=== PATIENT | female | born 1970 | race African-American/Black ===

== ENCOUNTER 2017-06-18 14:34 | Emergency (ER) | payer BC, OTHER ==
[~2017-06-18] VITALS: Ht 149.9 cm; Wt 80.0 kg
[~2017-06-18 14:34] MED LIST: AMLO10TA2 PO; MECL-62 PO; MOBI7.5T PO
[2017-06-18 14:35] VITALS: BP 216/121; PULSE 76; RESP 16; TEMP 98.6; O2SAT 98
[2017-06-18] MEDS ORDERED: KETOROLAC TROMETHAMINE 60 MG/2 ML (IM) VIAL IM ONE (17:30)
[2017-06-18] MEDS ORDERED: HYDR-3580 PO (18:24)
[2017-06-18] MEDS ORDERED: IBUP-232 PO (18:24)
--- NOTE | 2017-06-18 18:26 | PD ---
HPI Chief Complaint: Injury Time Seen by Provider: 17:01 Travel History International Travel<30 days: No Contact w/Intl Traveler<30days: No Traveled to known affect area: No History of Present Illness HPI 47 yo F complains of R shouler pain worse with elevation over 90 degrees. 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 no numbness/tingling/weakness. no similar prior episodes. duration now two days without significant reduction in pain severity. no other complaint at time of interview. PFSH Past Medical History Cardiovascular Problems: Yes (HYPERTENSION) Hypertension: Yes ?: Not Menopausal: Yes Past Surgical History Thoracic Surgery: Yes (PNEUMOTHORAX) Social History Alcohol Use: Yes (6 PACK ON WEEKEND) Tobacco Use: Yes (1-2 CIGGARETTES ON WEEKENDS) Substance Use: No Allergies-Medications (Allergen,Severity, Reaction): Coded Allergies: No Known Allergies (Verified , 07/26/16) Reported Meds & Prescriptions Reported Meds & Active Scripts Active Hydrocodone-Acetaminophen 7.5 Mg-325 Mg Tab 1 Tab PO Q6H PRN Ibuprofen 600 Mg Tab 600 Mg PO Q8H PRN Amlodipine (Amlodipine Besylate) 10 Mg Tab 10 Mg PO DAILY Mobic (Meloxicam) 7.5 Mg Tab 7.5 Mg PO DAILY Meclizine Hcl (Meclizine HCl) 25 Mg Tab 25 Mg PO TID PRN Review of Systems General / Constitutional: No: Fever Eyes: No: Visual changes HENT: No: Headaches Cardiovascular: No: Chest Pain or Discomfort Respiratory: No: Shortness of Breath Gastrointestinal: No: Abdominal Pain Physical Exam Narrative GENERAL: pleasant 47 you female in no acute distress SKIN: Warm and dry. HEAD: Atraumatic. Normocephalic. NECK: Trachea midline. No JVD. CARDIOVASCULAR: Regular rate and rhythm. RESPIRATORY: No accessory muscle use. Clear to auscultation. Breath sounds equal bilaterally. GASTROINTESTINAL: Abdomen soft, non-tender, nondistended. Hepatic and splenic margins not palpable. MUSCULOSKELETAL: Extremities without clubbing, cyanosis, or edema. No obvious deformities. TTP anterior R shoulder at the glenohumeral articulation. elevation above 90s degrees is limited 2/2 pain. 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 2+ radial artery pulses bilaterally. no pain with passive ROM at less than 90 degrees NEUROLOGICAL: Awake and alert. No obvious cranial nerve deficits. Motor grossly within normal limits. Five out of 5 muscle strength in the arms and legs. Normal speech. PSYCHIATRIC: Appropriate mood and affect; insight and judgment normal. Data Data Last Documented VS Vital Signs Date Time Temp Pulse Resp B/P (MAP) Pulse Ox O2 Delivery O2 Flow Rate FiO2 06/18/17 18:46 06/18/17 14:35 98.6 76 16 98 Vital Signs Date Time Temp Pulse Resp B/P (MAP) Pulse Ox O2 Delivery O2 Flow Rate FiO2 06/18/17 18:46 06/18/17 14:35 98.6 76 16 216/121 (152) 98 Orders Orders Shoulder, Complete (>2vws) (06/18/17 17:25) Splint Or Brace Apply/Monitor (06/18/17 17:25) Ketorolac Inj (Toradol Inj) (06/18/17 17:30) Sling Cradle Arm (06/18/17 ) Ed Discharge Order (06/18/17 18:26) MDM Medical Decision Making Medical Screen Exam Complete: Yes Emergency Medical Condition: Yes Differential Diagnosis rotator cuff injury, septic arthritis, djd, fracture, dislocation Narrative Course No septic arthritis RICE therapy Follow up with ortho BP elevated today and has been elevated above 200/- many times over past 5 years c/w chronic uncontrolled htn. follow up with pmd important. Diagnosis Primary Impression: Rotator cuff injury Qualified Codes: S46.001A - Unspecified injury of muscle(s) and tendon(s) of the rotator cuff of right shoulder, initial encounter Referrals: Jennifer Wilkinson MD call for appointment Additional Instructions: CALL DR COFFEY OF ORTHOPEDICS TO MAKE AN APPOINTMENT. PLEASE TAKE LORTAB ONLY AT NIGHT AND ONLY IF THE PAIN IS VERY SEVERE. PLEASE BE SURE TO THROW AWAY THE LORTAB IF YOU DON'T NEED IT ANY MORE. Med/Other Pt SpecificInfo: Prescription(s) given Scripts Hydrocodone-Acetaminophen (Hydrocodone-Acetaminophen) 7.5 Mg-325 Mg Tab 1 TAB PO Q6H Y for PAIN SCALE 6 TO 10, #12 TAB 0 Refills Prov: Leonardo Irwin MD 06/18/17 Ibuprofen (Ibuprofen) 600 Mg Tab 600 MG PO Q8H Y for PAIN, #5 TAB 0 Refills Prov: Leonardo Irwin MD 06/18/17 Disposition: 01 DISCHARGE HOME Condition: Stable Leonardo Irwin MD Jun 18, 2017 18:26
--- NOTE | 2017-06-18 18:28 | RADRPT ---
EXAM DATE/TIME: 06/18/2017 17:45 [facility] COMPARISON: No previous studies available for comparison. INDICATIONS : Right shoulder pain. MEDICAL HISTORY : Hypertension. SURGICAL HISTORY : None. ENCOUNTER: Initial ACUITY: 1 day PAIN SCORE: 8/10 LOCATION: Right shoulder FINDINGS: Multiple view examination of the right shoulder demonstrates no evidence of fracture or dislocation. The glenohumeral and acromioclavicular joints are maintained. There is normal range of motion betwe en internal and external rotation. Bony mineralization is normal. CONCLUSION: 1. No acute findings. Mild degenerative change at the a.c. joint. Shen Ceron MD on June 18, 2017 at 18:25 Board Certified Radiologist. This report was verified electronically.
[2017-06-27] MEDS ORDERED: MECL1TAB42 PO (13:05)
[2017-06-27] MEDS ORDERED: MELO7.5T27 PO (13:05)
== END 2017-06-18 18:47 | disposition home or self-care (01) ==
LOC: NEPD 14:34
DX: S46.001A Unspecified injury of muscle(s) and tendon(s) of the rotator cuff of right shoulder, initial encounter (principal); I10 Essential (primary) hypertension; F17.210 Nicotine dependence, cigarettes, uncomplicated; X58.XXXA Exposure to other specified factors, initial encounter
CPT/HCPCS: 73030; 96372; 99284; J1885